=== PATIENT | male | born 1960 | race African-American/Black ===

== ENCOUNTER 2019-05-08 20:34 | Emergency (ER) | payer SELFPAY ==
[~2019-05-08] VITALS: Ht 172.7 cm; Wt 72.6 kg
[2019-05-08] MEDS ORDERED: IBU800 MG PO (21:35)
== END 2019-05-08 22:07 | disposition home or self-care (01) ==
LOC: ED 20:34
DX: M16.11 Unilateral primary osteoarthritis, right hip (principal)

== ENCOUNTER 2020-12-29 15:04 | Emergency (ER) | payer SELFPAY ==
[~2020-12-29] VITALS: Ht 172 cm; Wt 74.8 kg
[~2020-12-29 15:04] MED LIST: IBU800 MG PO
[2020-12-29] MEDS ORDERED: ZOFRAN4 MG PO (18:12)
== END 2020-12-29 18:45 | disposition home or self-care (01) ==
LOC: ED 15:04
DX: U07.1 COVID-19 (principal); F17.200 Nicotine dependence, unspecified, uncomplicated